=== PATIENT | male | born 1965 | race Caucasian/White ===

== ENCOUNTER 2023-01-13 09:06 | Outpatient (OUT) | payer BC, SELFPAY ==
--- NOTE | 2023-01-13 09:09 | CT_ITS ---
[address] [address] Patient Name: RASHAWN BALTAZAR MRN: [id number] date: 1965 Sex: M Assigned Patient Location: CT Current Patient Location: CT Accession/Order Number: [id number] Exam Date: 01/13/2023 09:12 Report Date: 01/13/2023 09:58 At the request of: FABIO MONTEMAYOR Procedure: CT chest wo con EXAMINATION: CT chest wo con HISTORY: Pulmonary Nodule ; right side chest pain for 3 weeks COMPARISON: CT lung cancer screening 05/06/2022 TECHNIQUE: Multi-planar CT images were obtained without and/or with IV contrast as indicated by examination type. Axial, Coronal, and Sagittal images. Dose reduction techniques were achieved by using automated exposure control and/or adjustment of mA and/or kV according to patient size and/or use of iterative reconstruction technique. FINDINGS: LUNGS: Stable 4.5 cm nodule within right lower lobe superior segment. No additional nodules, infiltrates, or significant emphysematous changes. PLEURA: No mass, effusion, or pneumothorax. VASCULATURE: No abnormality. JORDEN: No mass or adenopathy. MEDIASTINUM: No mass or adenopathy. CARDIAC: No enlargement, pericardial thickening, or significant calcification. AORTA: No aneurysm or dissection. CHEST WALL: No mass or axillary adenopathy. BONES: No bone lesion or fracture. LIMITED ABDOMEN: No suspicious findings Limited images of the upper abdomen. OTHER: Negative. CT/CT chest wo con IMPRESSION: 1. Stable appearance of the 4.5 mm nodule within the right lower lobe superior segment. No change or new findings within the lungs. Annual CT lung cancer screening should be considered. Electronically authenticated by: BASSEM VELÁSQUEZ Date: 01/13/2023 09:58
== END 2023-01-13 09:07 | disposition home or self-care (01) ==
LOC: CT 09:06
PROVIDERS: PCP Internal Medicine; Visit Provider Internal Medicine
DX: R91.1 Solitary pulmonary nodule (principal); R07.2 Precordial pain
CPT/HCPCS: 71250

== ENCOUNTER 2024-01-25 07:42 | Outpatient (OUT) | payer BC, SELFPAY ==
--- NOTE | 2024-01-25 07:55 | CT_ITS ---
The [address] [address] Patient Name: RASHAWN BALTAZAR MRN: [id number] date: 1965 Sex: M Assigned Patient Location: CT Current Patient Location: Accession/Order Number: [id number] Exam Date: 01/25/2024 07:58 Report Date: 01/26/2024 09:36 At the request of: FABIO MONTEMAYOR Procedure: CT lung screening low-dose EXAMINATION: CT lung screening low-dose HISTORY: Nicotine Dependence F17.211 COMPARISON: CT chest 01/13/2023, 05/06/2022 TECHNIQUE: Axial, Coronal, and Sagittal images were created without the administration of IV contrast material. Dose reduction techniques were achieved by using automated exposure control and/or adjustment of mA and/or kV according to patient size and/or use of iterative reconstruction technique. FINDINGS: LUNGS: Stable 4.5 mm nodule within superior segment of right lower lobe. No additional nodules or acute infiltrates. PLEURA: No mass, effusion, or pneumothorax. VASCULATURE: No abnormality. JORDEN: No mass or pathologic adenopathy. MEDIASTINUM: No mass or pathologic adenopathy. CARDIAC: No enlargement, pericardial thickening, or pericardial effusion. Coronary Artery calcifications: AORTA: No aneurysm or dissection. CHEST WALL: No mass or axillary adenopathy BONES: No bone lesion or fracture. LIMITED ABDOMEN: No suspicious findings. Limited images of the upper abdomen. OTHER: Negative. CT/CT lung screening low-dose IMPRESSION: 1. Lung-RADS 2- Benign Appearance or Behavior. Nodules with a very low likelihood of becoming a clinically active cancer due to size or lack of growth. Follow-up CT Chest in 1 year. Electronically authenticated by: BASSEM VELÁSQUEZ Date: 01/26/2024 09:36
[2024-01-25 07:59] LABS: Basophils Absolute Auto 0.1 10^3/uL (0.0-0.1); Basophils Percent Auto 0.6 % (0.2-2.0); Eosinophils Absolute Auto 0.1 10^3/uL (0.0-0.7); Eosinophils Percent Auto 0.7 % (0.9-7.0); Hematocrit 41.1 % (42.0-54.0); Hemoglobin 13.9 g/dL (14.0-18.0); Immature Granulocytes Abs Auto 0.05 10^3/uL (0.00-0.03); Immature Granulocytes Pct Auto 0.5 % (0.0-0.5); Lymphocytes Absolute Auto 4.3 10^3/uL (1.2-3.8); Lymphocytes Percent Auto 40.9 % (20.5-60.0); Mean Corpuscular HGB Conc 33.8 g/dL (29.9-35.2); Mean Corpuscular Volume 91.7 fL (80.0-94.0); Mean Platelet Volume 9.7 fL (9.5-13.5); Monocytes Absolute Auto 0.7 10^3/uL (0.3-0.8); Monocytes Percent Auto 6.1 % (1.7-12.0); Neutrophils Absolute Auto 5.4 10^3/uL (1.4-6.5); Neutrophils Percent Auto 51.2 % (43.0-75.0); Platelet Count 251 10^3/uL (150-450); Red Blood Count 4.48 10^6/uL (4.70-6.10); Red Cell Distribution Width 12.1 % (11.0-15.0); White Blood Count 10.6 10^3/uL (4.0-11.0)
[2024-01-25 09:06] LABS: Estimated Average Glucose 117 mg/dL; Glycohemoglobin A1C 5.7 % (4.5-6.2)
[2024-01-25 09:28] LABS: Alanine Aminotransferase 43 U/L (16-63); Albumin Globulin Ratio 1.2; Alkaline Phosphatase 86 U/L (46-116); Anion Gap 12.8; Aspartate Amino Transferase 28 U/L (15-37); BUN Creatinine Ratio 19.4; Bilirubin Total 0.5 mg/dL (0.2-1.0); Calcium 9.5 mg/dL (8.5-10.1); Carbon Dioxide 24.3 mmol/L (21.0-32.0); Chloride 101 mmol/L (98-107); Chol HDL Ratio 5.2; Cholesterol 192 mg/dL (<=200); Estimated GFR (African America >60 (>=60); Estimated GFR (Non-African Ame >60 (>=60); Globulin 3.3 g/dL; Glucose 109 mg/dL (74-106); HDL Cholesterol 37 mg/dL (40-60); Potassium 4.1 mmol/L (3.5-5.1); Sodium 134 mmol/L (136-145); Total Protein 7.3 g/dL (6.4-8.2); Triglycerides 547 mg/dL (<=150); VLDL CHOLESTEROL 109.4 mg/dL
[2024-01-25 09:40] LABS: Prostate Specific Antigen Scrn 0.44 ng/mL (<=4.00)
[2024-01-25 11:26] LABS: LDL Cholesterol Direct 84 mg/dL
== END 2024-01-25 07:43 | disposition home or self-care (01) ==
LOC: CT 07:42
PROVIDERS: PCP Internal Medicine; Visit Provider Internal Medicine
DX: Z00.00 Encounter for general adult medical examination without abnormal findings (principal); F17.211 Nicotine dependence, cigarettes, in remission; R91.1 Solitary pulmonary nodule
CPT/HCPCS: 36415; 71271; 80053; 80061; 83036; 83721; 84443; 85025; G0103

== ENCOUNTER 2025-02-06 07:31 | Outpatient (OUT) | payer BC, SELFPAY ==
--- OUTSIDE RECORDS SUMMARY | 2025-02-06 07:37 | XMS_ITS | CCD ---
Author Organization [facility] Care Team Providers Care Associate Professor Of Management Name Role Phone STEPHON, DR MTZ Consulting Unavailable BALL, DR MCCARTHY Primary Care Unavailable NILL, DR MTZ Admitting Unavailable NILL, DR MTZ Attending Unavailable BALL, DR MCCARTHY Primary Care Unavailable BALL, DR MCCARTHY Admitting Unavailable BALL, DR MCCARTHY Attending Unavailable HOY, DR MENDIETA Admitting Unavailable HOY, DR MENDIETA Attending Unavailable BALL, DR MCCARTHY Primary Care Unavailable HOY, DR MENDIETA Consulting Unavailable NILL, DR MTZ Admitting Unavailable BALL, DR MCCARTHY Primary Care Unavailable NILL, DR MTZ Attending Unavailable NILL, DR MTZ Consulting Unavailable DORKOPHIL, ELIZABETH Consulting Unavailable David Montemayor Unavailable David Montemayor DO Primary Care Provider David Montemayor DO Attending Provider [phone] Medications Current Medications Medication Drug Class(es) Dates Sig (Normalized) Sig (Original) amLODIPine 10 mg oral tablet (8 sources) Dihydropyridine Calcium Channel Denisse Start: 02-26-2024 take 1 tablet by mouth once daily Amlodipine 10 mg tablet Active 0 .ROUTE .COMPLEX February 26, 2024 7:29pm TAKE 1 TABLET BY MOUTH DAILY Complies with drug therapy Start: 08-25-2023 End: 02-26-2024 take 1 tablet by mouth once daily Amlodipine 10 mg tablet Discontinued 10 MG PO Daily August 25, 2023 12:00am February 26, 2024 7:29pm take 1 tablet by karley th every twenty-four hours amLODIPine Besylate 10 MG 1 tablet Orally Once a day for 90 days Active 24 hr metoprolol succinate 50 mg extended release oral tablet (10 sources) beta-Adrenergic Denisse Start: 01-26-2025 take 1 tablet by mouth once daily Metoprolol Succinate 50 mg tablet extended release 24 hr Active 0 .ROUTE .COMPLEX January 26, 2025 8:37am TAKE 1 TABLET BY MOUTH DAILY Complies with drug therapy Start: 01-18-2024 End: 01-26-2025 take 1 tablet by mouth once daily Metoprolol Succinate 50 mg tablet extended release 24 hr Discontinued 50 MG PO Daily January 18, 2024 2:34pm January 26, 2025 8:37am Start: 08-25-2023 End: 01-18-2024 take 1 tablet by mouth once daily Metoprolol Succinate 25 mg tablet extended release 24 hr Discontinued 25 MG PO Daily August 25, 2023 12:00am January 18, 2024 2:35pm Start: 10-20-2022 take 1 tablet by karley th every twenty-four hours Metoprolol Succinate ER 25 MG 1 tablet Orally Once a day for 90 days Sep, Active omeprazole 20 mg delayed release oral capsule (13 sources) Proton Pump Inhibitor Start: 02-27-2024 End: 08-24-2024 take 1 capsule by mouth once daily Omeprazole 20 mg capsule,delayed release(DR/EC) Active 20 MG PO Daily August 24, 2024 6:49am Complies with drug therapy Start: 08-25-2023 End: 02-27-2024 Omeprazole 20 mg capsule,del ayed release(DR/EC) Discontinued 0 .ROUTE .COMPLEX November 28, 2023 10:00am February 27, 2024 11:04am TAKE 1 CAPSULE BY MOUTH 30 MINUTES BEFORE MORNING MEAL Start: 08-25-2023 End: 11-28-2023 Omeprazole Active 0 .ROUTE . COMPLEX November 28, 2023 10:00am TAKE 1 CAPSULE BY MOUTH 30 MINUTES BEFORE MORNING MEAL Start: 08-25-2023 End: 08-25-2023 take 1 capsule by mouth once daily Omeprazole 20 mg capsule,delayed release(DR/EC) Discontinued 20 MG PO Daily August 25, 2023 12:00am August 25, 2023 4:04pm Start: 11-05-2022 take 1 capsule by mo [facility] once daily Omeprazole 20 MG 1 capsule 30 minutes before morning meal Orally Once a day Oct, Active rosuvastatin calcium 10 mg oral tablet (8 sources) HMG-CoA Reductase Inhibitor Start: 08-25-2023 End: 02-27-2024 take 1 tablet by mouth once daily Rosuvastatin 10 mg tablet Active 10 MG PO Daily 90 February 27, 2024 11:03am Complies with drug therapy take 1 tablet by karley th every twenty-four hours Rosuvastatin Calcium 10 MG 1 tablet Oral ly Once a day for 90 days Active Problems Active Problems Problem Classification Problem Date Documented Date Episodic/Chronic Anxiety disorders (14 sources) Generalized anxiety disorder; Translations: [Generalized anxiety disorder] 01-01-2024 Chronic Disorders of lipid metabolism (15 sources) Hyperlipidemia, unspecified; Translations: [Mixed hyperlipidemia] Onset: 05-11-2021 01-01-2024 Chronic Esophageal disorders (20 sources) Guillen's esophagus without dysplasia; Translations: [Guillen's esophagus] Onset: 05-06-2021 Chronic Comment on above: EGD: 2018 Esophageal disorders (7 sources) Esophageal disorders; Translations: [Gastro-esophageal reflux disease with esophagitis, without bleeding] Essential hypertension (11 sources) Essential (primary) hypertension; Translations: [Essential hypertension] Onset: 05-11-2021 Chronic Nonspecific chest pain (1 source) Precordial pain Episodic Other lower respiratory disease (8 sources) Nodule of lung; Translations: [Solitary pulmonary nodule] 01-01-2024 Episodic Comment on above: CT: 4.5mm RLL - 01/19 24, Other lower respiratory disease (3 sources) Solitary pulmonary nodule; Translations: [Solitary pulmonary nodule] Episodic Other screening for suspected conditions (not mental disorders or infectious disease) (4 sources) Patient encounter status; Translations: [Encounter for screening for malignant neoplasm of prostate] 01-01-2024 Episodic Residual codes; unclassified (13 sources) Obstructive sleep apnea syndrome; Translations: [Obstructive sleep apnea (adult) (pediatric)] Onset: 04-09-2021 01-01-2024 Chronic Residual codes; unclassified (1 source) Obstructive sleep apnea (adult) (pediatric); Translations: [Obstructive sleep apnea (adult)(pediatric)] 01-18-2024 Chronic Residual codes; unclassified (2 sources) History of colonoscopy; Translations: [Other specified postprocedural states] 01-01-2024 Episodic Substance-related disorders (17 sources) Nicotine dependence, cigarettes, uncomplicated; Translations: [Tobacco user] Onset: 05-11-2021 Chronic Comment on above: LDCT: 4.5mm RLL nodu le, no suspicious nodules - 12/2022, 01/2024 Unclassified (1 source) GASTR-ESOPH RFLX DS ESPHGTS W/O BLD; Translations: [GASTR-ESOPH RFLX DS ESPHGTS W/O BLD] Onset: 05-11-2021 Unclassified (1 source) CONTACT W/AND (SUSP) EXPOS COVID-19; Translations: [CONTACT W/AND (SUSP) EXPOS COVID-19] Onset: 05-07-2021 Past or Other Problems Problem Classification Problem Date Documented Date Episodic/Chronic Abdominal hernia (1 source) Diaphragmatic hernia without obstruction or gangrene; Translations: [DIAPH HERNIA W/O OBST/GANGRENE] Onset: 05-11-2021 Episodic Results Test Name Value Interpretation Reference Range Facil ity Reminderson 05-22-2021 Reminders - From: Heather Elder LPN To: N - Clinical; Sent: 05/22/2021 11:36:01 EST Show up: 04/05/2026 08:00:00 EST Subject: EGD recall Due Date/Time: 05/06/2026 08:00:00 EST Reminder/Recall Patient is due for EGD 05/06/2026 due to history of Guillen's esophagus. Normal [facility] Pathology Noteon 05-08-2021 Pathology Note [id number]#1.00CD:[address] [facility] Operative Reporton Operative Report [id number] #1.00CD:[address] [facility] Lab Reportson 05-04-2021 Lab Reports [id number] #1.00CD:[address] [facility] 04-03 SARS-CoV-2 (COVID-19) RNA COLLETTE+probe Ql (Unsp spec) Not detected Normal NOT DETECTED [facility] Comment on above: Result Comment: This test is not yet approved or cleared by the [place] FDA. When there are no FDA-approved or cleared tests available, and other criteria are met, FDA can make tests available under an emergency access mechanism called an Emergency Use Authorization (EUA). The EUA for this test is supported by the [place] of Health and Human Service's (HHS's) declaration that circumstances exist to justify the emergency use of in vitro diagnostics for the detection and/or diagnosis of the virus that causes COVID-19. This EUA will remain in effect (meaning this test can be used) for the duration of the COVID-19 declaration justifying emergency of IVDs, unless it is terminated or revoked by FDA (after which the test may no longer be used). When diagnostic testing is negative, the possibility of a false negative should be considered in the context of a patient's recent exposures and the presence of clinical signs and symptoms consistent with SARS-CoV-2. Performed By: #### [facility] #### [facility] Laboratory [address] [place] [address] Dr. Aria Mcdonald Consent for Procedure/Surger yo 04-16-2021 Consent for Procedure/Surgery [id number] #1.00CD:[address] [facility] Patient Educationon 04-15-20 Patient Education Normal [facility] Provider Letter FTon 04-15 Provider [place] [facility] [place] DAVID MONTEMAYOR, [facility] [place] [address] Re: HARIS RUIZ Date of : 1965 Thank you for your referral of Haris Ruiz who was seen on consultation on 04/14/2021 for EGD due to history Guillen's esophagus. I have enclosed my consultation note for your review. I will be happy to follow Haris. Sincerely, Bibi Love MD General Surgery Normal [facility] Ambulatory Clinical Summaryo n 04-14-2021 Ambulatory Clinical Summary {[id number]}CD:[id number] Normal [facility] Physician Referralon 021 Physician Referral [id number] #1.00CD:[address] [facility] Vital Signs Date Time Vital Sign Value Performing Clinician Facility 01-30-2025 15:03-0400 Body height 181.61 cm David Ball DO Work Phone: [facility] 01-30-2025 15:03-0400 Body mass index (BMI) [Ratio] 27.1 kg/m2 David Ball DO Work Phone: [facility] 01-30-2025 15:03-0400 Body weight 89.35 kg David Ball DO Work Phone: [facility] 01-30-2025 15:03-0400 Diastolic blood pressure 80 mm[Hg] David Ball DO Work Phone: [facility] 01-30-2025 15:03-0400 Heart rate 87 /min David Ball DO Work Phone: [facility] 01-30-2025 15:03-0400 Respiratory rate 12 /min David Ball DO Work Phone: [facility] 01-30-2025 15:03-0400 Systolic blood pressure 120 mm[Hg] David Ball DO Work Phone: [facility] 01-18-2024 14:25-0400 Body height 180.34 cm [facility] 01-18-2024 14:25-0400 Body mass index (BMI) [Ratio] 26.9 kg/m2 [facility] 01-18-2024 14:25-0400 Body weight 87.71 kg [facility] 01-18-2024 14:25-0400 Diastolic blood pressure 87 mm[Hg] [facility] 01-18-2024 14:25-0400 Heart rate 102 /min [facility] 01-18-2024 14:25-0400 Respiratory rate 12 /min [facility] 01-18-2024 14:25-0400 Systolic blood pressure 145 mm[Hg] [facility] 12-31-2022 14:00-0400 Body height 175.26 cm David Ball Other [email or web address] Other 12-31-2022 14:00-0400 Body mass index (BMI) [Ratio] 26.81 kg/m2 David Montemayor Other [email or web address] Other 12-31-2022 14:00-0400 Body weight 82.37 kg David Montemayor Other [email or web address] Other 12-31-2022 14:00-0400 Diastolic blood pressure 88 mm[Hg] David Montemayor Other [email or web address] Other 12-31-2022 14:00-0400 Respiratory rate 12 /min David Montemayor Other [email or web address] Other 12-31-2022 14:00-0400 Systolic blood pressure 153 mm[Hg] David Montemayor Other [email or web address] Other Encounters Encounter Date Encounter Type Care Provider Facility Start: 01-30-2025 End: 01-30-2025 ambulatory David Montemayor DO Work Phone: [facility] Work Phone: Start: 01-30-2025 End: 01-30-2025 Patient encounter procedure David Montemayor -[facility] Work Phone: Start: 01-30-2025 End: 01-30-2025 Patient encounter status David Montemayor [facility] Start: 01-18-2024 End: 01-18-2024 ambulatory [facility] Work Phone: Start: 01-18-2024 End: 01-18-2024 Encounter for general adult medical examination without abnormal findings [facility] Start: 01-18-2024 End: 01-18-2024 Patient encounter procedure [facility] Work Phone: Start: 01-01-2024 Patient encounter status [facility] Start: 06-08-2023 End: 06-08-2023 ambulatory David Montemayor Other [email or web address] Other Start: 06-08-2023 Telephone encounter David Jose Elias [facility] Start: 02-11-2023 End: 02-11-2023 ambulatory David Montemayor Other [email or web address] Other Start: 02-11-2023 Telephone encounter David Montemayor [facility] Start: 01-14-2023 End: 01-14-2023 ambulatory David Montemayor Other [email or web address] Other Start: 01-14-2023 Telephone encounter David Montemayor [facility] Start: 01-13-2023 End: 01-13-2023 ambulatory David Montemayor Other [email or web address] Other Start: 01-13-2023 Telephone encounter David Montemayor [facility] Start: 12-31-2022 End: 12-31-2022 ambulatory David Montemayor Other [email or web address] Other Start: 12-31-2022 Office outpatient vi sit 15 minutes David Montemayor [facility] Start: 04-28-[address] DAVID MONTEMAYOR Facili ty:[facility] Start: 03-03-2022 End: 03-04-[address] ANAM CONNOR Facility:[facility] Start: 05-07-2021 Encounter for preprocedural laboratory examination DR BIBI LOVE [facility] Start: 05-06-2021 End: 05-06-[address] BIBI LOVE Facility:[facility] Start: 04-30-2021 End: 05-01-[address] BIBI LOVE Facility:[facility] Start: 04-30-2021 End: 05-01-2021 Encounter for preprocedural laboratory examination DR BIBI LOVE Facility:[facility] Plan of Treatment Date Care Activity Detail Author Comprehensive metabo lic 1999 panel - Serum or Plasma [facility] enter Comprehensive metabo lic 1999 panel - Serum or Plasma [facility] enter CT Chest WO contrast [facility] Payers Date Payer Category Payer Unknown [id number] 1965 Unknown [id number] [id number] [id number] 1965 Unknown [id number] [id number] [id number] 1965 Unknown [id number] [id number] [id number] 1961 [facility] [id number] [id number] Unknown [id number] [id number] [id number] Social History Date Type Detail Facility Sex Assigned At [facility] [employer] Other Start: 1965 Sex Assigned At Male F [facility] Tobacco smoking stat [facility] Unknown if ever smoked [facility] Work Phone: Sex Male (finding) [facility] Clinical Notes 04-15-2021 to 06-08-2023 Note Date & Type Note Facility 06-08-2023 Evaluation note Encounter Date Diagnosis Assessment Notes Jun, Primary hypertension (ICD-10 - I10) [employer] [place] [facility] [employer] Other 10-13-2023 Evaluation note* Encounter Date Diagnosis Assessment Notes Treatment Notes Treatment Clinical Notes Jan, Primary hypertension (ICD-10 - I10) [email or web address] Other 09-14-2023 Evaluation note* Encounter Date Diagnosis Assessment Notes Treatment Notes Treatment Clinical Notes Dec, Nicotine dependence, cigarettes, uncomplicated (ICD-10 - F17.210) Dec, Pulmonary nodule (ICD-10 - R91.1) CT: stable 4.5mm nodule - 12/2022 [email or web address] Other 09-01-2023 Evaluation note* Encounter Date Diagnosis Assessment Notes Treatment Notes Treatment Clinical Notes Dec, Pulmonary nodule (ICD-10 - R91.1) Dec, Precordial pain (ICD-10 - R07.2) Dec, Gastro-esophageal reflux disease with esophagitis, without bleeding (ICD-10 - K21.00) Dec, Primary hypertension (ICD-10 - I10) Dec, Nicotine dependence, cigarettes, uncomplicated (ICD-10 - F17.210) [email or web address] Other 01-05-2022 NoteOPERATIVE NOTE OPERATION DATE: 05-06-21 ANESTHETIC:Monitored anesthesia care. PREOPERATIVE DIAGNOSIS:History of Guillen's esophagus. POSTOPERATIVE DIAGNOSIS:Mild distal esophagitis, small sliding type hiatal hernia. PROCEDURE NAME:EGD with biopsy of the distal esophagus. ESTIMATED BLOOD LOSS: Less than 1 mL. INDICATIONS AND CONSENT: The patient is a 56 year-old male with history of Guillen's esophagus. Indications, risks, benefits, and alternatives of proceeding surveillance EGD were explained extensively to the patient including the risk of bleeding, aspiration, esophageal, gastric or duodenal perforation or anesthetic complications. All of his questions were answered and informed consent was obtained. PROCEDURE: The patient was brought to the OR and placed in the left lateral decubitus position. Monitored anesthesia care was provided. A bite block was placed in the patient's mouth, the scope was inserted into the oropharynx, under direct visualization it was advanced into the esophagus, passed the cricopharyngeus, down into the stomach. The stomach was insufflated with air, the pylorus was traversed down to the descending portion of the duodenum. There was no evidence of duodenitis or ulceration. There was no scarring range of motion the pyloric channel. The scope was pulled back into the stomach and retroflexed. There was noted to be a small sliding type hiatal hernia. No other gastric mucosal abnormalities. The GE junction was noted at approximately 40 cm. There was very mild distal esophagitis, no evidence of Guillen's changes. Biopsy was obtained with pediatric biopsy forceps with good hemostasis. The remainder of the esophagus was unremarkable. The scope was then withdrawn, the patient tolerated the procedure well and was sent to the Recovery Room in good condition. cc:Dr. Montemayor. [facility] Signed and Approved by: DR BIBI LOVE . 05/06/2021 10:37:00[facility]12-15-2021 NoteChief Complaint consultation for heartburn HPI Staff 56 year old male presents on consultation from Dr. Montemayor for EGD due to history of Guillen's esophagus, diagnosed 2018. Denies nausea, vomiting, abdominal pain or food intolerance. History of Present Illness 56 yo female with h/o htn, referred for surveillance EGD due to h/o Guillen's esophagus; dx on EGD in 2018, no dysplasia; had normal colonoscopy at that time; denies GERD symptoms, on Omeprazole, 20 mg daily; no dysphagia or odynophagia; no early satiety or wt loss; denies as or NSAID use. fmhx of esophageal cancer in patient's brother. Review of Systems PHQ Score Initial Depression Screen Score: 0 ROS - Provider Constitutional: no fever, no sweats, no weight loss. Eyes: no glasses, no blurred vision, no visual loss. ENMT: no dentures, no hoarseness, no swallowing difficulties, no hearing loss, no ear infection(s),no nose bleeds. Cardiovascular: high blood pressure, no chest pain, regular heartbeat, no heart murmur. Respiratory: no shortness of breath, no cough, no asthma, no wheezing. Gastrointestinal: no nausea, no vomiting, no diarrhea, no constipation, no blood in stool, no change in bowel habits, no abdominal pain, no hepatitis. Genitourinary: no kidney stones, no urine infection, no dysuria. Musculoskeletal: no pain, no weakness. Skin: no changing moles, no rash, no skin lumps. Neurologic: no seizures, no epilepsy, no headache. Psychiatric: no emotional or psychiatric problem. Heme/Lymph: no bleeding problems, no anemia, no blood clots, no transfusions. Allergy/Immunologic: no swollen lymph nodes/glands, no IV drug abuse. Other: Additional ROS info: Except as noted in the above Review of Systems and in the History of Present Illness, all other systems have been reviewed and are negative or noncontributory. Physical Exam Vitals & Measurements T: 36.2 ?C(Temporal Artery) HR: 72(Peripheral) RR: 16 BP: 138/86 HT: 175.26 cm HT: 175.3 cm WT: 81.3 kg WT: 81.3 kg BMI: 26.47 HEENT: normal conjunctiva, sclera clear, no scleral icterus, EOM intact, PERRLA, oral mucosa moist without lesions. Neck: trachea midline, no mass, symmetric, no thyromegaly or nodules, no adenopathy Respiratory: lungs CTA, respirations non labored. Cardiovascular: regular rate and rhythm, no murmur, no pedal edema or varicosities. Gastrointestinal: soft, non distended, no tenderness, no masses, no palpable hernias, diastasis recti no, no hepatosplenomegaly; normal bs Lymphatic: no cervical adenopathy, Musculoskeletal: normal gait, digits and nails without infection, nodes, cyanosis, clubbing. Skin: no rashes, no lesions, no ulcers, no subcutaneous nodules, induration. Psychiatric/Neuro: oriented to time, place, person, judgement normal, affect appropriate for age, insight intact, no focal deficits. Tests: review of old records completed, Discussed surgical options, risks, and possible complications with patient. Assessment/Plan 1. Guillen's esophagus (K22.70: Guillen's esophagus without dysplasia) plan EGD under anesthesia with biopsies; informed consent obtained. 2. GERD (gastroesophageal reflux disease) (K21.9: Gastro-esophageal reflux disease without esophagitis) controlled with PPI Follow-up No qualifying data available Problem List/Past Medical History Ongoing Guillen's esophagus BMI 26.0-26.9,adult Depression, major, recurrent, mild ALLY (generalized anxiety disorder) GERD (gastroesophageal reflux disease) HTN (hypertension) Hyperlipidemia Smoker Historical No qualifying data Procedure/Surgical History Colonoscopy (04/01/2018), EGD - Esophagogastroduodenoscopy (04/01/2018), Repair of right inguinal hernia (05/02/2011), Biopsy of lymph node. Medications amLODIPine 5 mg Tab, 5 mg= 1 tab(s), Oral, Daily Lexapro 10 mg Tab, 10 mg= 1 tab(s), Oral, Daily metoprolol 25 mg ER Tab, 25 mg= 1 tab(s), Oral, Daily omeprazole 20 mg Cap-DR, 20 mg= 1 cap(s), Oral, Daily rosuvastatin 10 mg Tab, 10 mg= 1 tab(s), Oral, Daily Allergies No Known Allergies No Known Medication Allergies Social History Alcohol - Denies Alcohol Use, 04/14/2021 Substance Abuse - Denies Substance Abuse, 04/14/2021 Tobacco 10 or more cigarettes (1/2 pack or more)/day in last 30 days Tobacco Use:. Never Smokeless Tobacco Use:. Cigarettes, 1 per day. Started age 15.0 Years., 04/14/2021 Family History Diabetes mellitus type 2: Mother, Sister and Brother. Esophageal cancer: Brother. Heart disease: Mother. Hypertension: Father, Sister and Brother. Primary malignant neoplasm of lung: Father.[facility]Result Comment: Electronically Signed By: STEPHON ANDRADE, Bibi Flores\Date and Time Signed: 04/15/21 11:44 ESTEvaluation noteNo InformationNortEncompass Health [employer] Other Evaluation note* Diagnosis Onset Date Resolution Status Guillen's esophagus acute ALLY (generalized anxiety disorder) acute GERD (gastroesophageal reflux disease) acute Hypercholesterolemia acute Nicotine addiction acute GIULIA (obstructive sleep apnea) acute Pulmonary nodule acute Screening PSA (prostate specific antigen) acute Wellness examination acute [facility] Work Phone: Evaluation note* Diagnosis Onset Date Resolution Status Admit Date ALLY (generalized anxiety disorder) a cute January 30, 2025 2:52pm GERD (gastroesophageal reflu x disease) acute January 30 2:52pm Hypercholesterolemia acute Octo 2024 2:52pm Hypertension acute January 30, 2025 2:52pm Nicotine addiction acute r 2024 2:52pm GIULIA (obstructive sleep apnea) acute January 30, 2025 2:52pm Pulmonary nodule acute January 30, 2025 2:52pm Screening PSA (prostate spec ific antigen) acute January 30 2:52pm Wellness examination acute 2024 2:52pm [facility] Work Phone: History general Narrative - Reported* Type Description Date Medical History Hyperlipidemia, mixed Medical History ALLY (generalized anxiety disorde r) Medical History Cigarette nicotine dependence wi thout complication Medical History Obstructive sleep apnea Medical History Guillen's esophagus without dysp lasia Medical History Gastroesophageal ref lux disease with esophagitis without hemorrhage Surgical History COLONOSCOPY 04/2018 Surgical History EGD 04/2018 Hospitalization History see surgical history [facility] [employer] Other Reason for referral (narrative)No reason for referral information availableSelect [facility] [place] Work Phone: Summary Purpose Family History Relationship Condition Age at Onset Recorded Date/T ramon mother Diabetes mellitus Unknown Heart disease Unknown Advance Directives Advance Directive Response Recorded Date/ Time Advance Directives No December 2:18pm Chief Complaint and Reason for Visit Chief Complaint wellness Reason for Visit Guillen's esophagus ALLY (generalized anxiety disorder) GERD (gastroesophageal reflux disease) Hypercholesterolemia Nicotine addiction GIULIA (obstructive sleep apnea) Pulmonary nodule Screening PSA (prostate specific antigen) Wellness examination Chief Complaint Admit Date Wellness January 30, 2025 2: 52pm Reason for Visit Admit Date ALLY (generalized anxiety disorder) Octob er 2024 2:52pm GERD (gastroesophageal reflux disease) O ctober 2024 2:52pm Hypercholesterolemia January 30, 2025 2 :52pm Hypertension January 30, 2025 2: 52pm Nicotine addiction January 30, 2025 2: 52pm GIULIA (obstructive sleep apnea) January 2:52pm Pulmonary nodule January 30, 2025 2: 52pm Screening PSA (prostate specific antigen ) January 30, 2025 2:52pm Wellness examination January 30, 2025 2 :52pm Additional Source Comments (unrecognized sect ion and content) No Status Records FoundNo Status Records Found INFORMATION SOURCE (unrecogn ized section and content) DATE CREATED AUTHOR 05/23/2021 [facility] DATE CREATED AUTHOR AUTHOR'S ORGANIZ ATION 04/24/2022 [facility] REASON FOR VISIT (unrecogniz ed section and content) chest pain, not cardiac rela tedNo InformationCT resultsRefillRefills Care Teams (unrecognized sec tion and content) Team Status: Active Member Role Status Dates David Mnotemayor DO Primary Care Provider Active Team Status: Inactive Member Role Status Dates David Montemayor DO Primary Care Provide r, Attending Provider Active Start: January 18, 2024 End: January 18, 2024 Team Status: Inactive Member Role Status Dates David Montemayor DO Primary Care Provider Active Start: January 30, 2025 End: January 30, 2025 David Montemayro DO Attending Provider Active Sta rt: January 30, 2025 End: January 30, 2025 Goals (unrecognized section and content) Goals may be documented in a n alternate section FOR RECORDS PERTAINING TO PATIENTS WHO ARE OR HAVE BEEN ENROLLED IN A CHEMICAL DEPENDENCY/SUBSTANCEABUSE PROGRAM, SOME INFORMATION MAY BE OMITTED. This clinical summary was aggregated from multiple sources. Caution should be exercised in using it in the provision of clinical care. This summary normalizes information from multiple sources, and as a consequence, information in this document may materially change the coding, format and clinical context of patient data. In addition, data may be omitted in some cases. CLINICAL DECISIONS SHOULD BE BASED ON THE PRIMARY CLINICAL RECORDS. [facility] [employer] [facility]. provides no warranty or guarantee of the accuracy or completeness of information in this document.
[2025-02-06 08:14] LABS: Hematocrit 41.7 % (42.0-54.0); Hemoglobin 14.2 g/dL (14.0-18.0); Mean Corpuscular HGB Conc 34.1 g/dL (29.9-35.2); Mean Corpuscular Hemoglobin 30.9 pg (25.9-34.0); Mean Corpuscular Volume 90.7 fL (80.0-94.0); Platelet Count 322 10^3/uL (150-450); Red Blood Count 4.60 10^6/uL (4.70-6.10); White Blood Count 12.6 10^3/uL (4.0-11.0)
[2025-02-06 08:21] LABS: Alanine Aminotransferase 43 U/L (16-63); Albumin Globulin Ratio 1.1; Albumin Level 4.2 g/dL (3.4-5.0); Alkaline Phosphatase 84 U/L (46-116); Anion Gap 13.9; Aspartate Amino Transferase 23 U/L (15-37); Blood Urea Nitrogen 22.0 mg/dL (7.0-18.0); Calcium 9.3 mg/dL (8.5-10.1); Carbon Dioxide 27.2 mmol/L (21.0-32.0); Chloride 104 mmol/L (98-107); Cholesterol 167 mg/dL (<=200); Estimated GFR (African America >60 (>=60 mL/min/1.73m^2); Estimated GFR (Non-African Ame >60 (>=60 mL/min/1.73m^2); Globulin 3.8 g/dL; Glucose 121 mg/dL (74-106); HDL Cholesterol 34 mg/dL (40-60); Potassium 4.1 mmol/L (3.5-5.1); Sodium 141 mmol/L (136-145); Total Protein 8.0 g/dL (6.4-8.2); Triglycerides 299 mg/dL (<=150); VLDL CHOLESTEROL 59.8 mg/dL
[2025-02-06 10:08] LABS: Basophils Abs Manual 0.00 10^3/uL (0.00-0.10); Basophils Percent Manual 0.0 % (0.2-2.0); Eosinophils Absolute Manual 0.00 10^3/uL (0.00-0.70); Eosinophils Percent Manual 0.0 % (0.9-7.0); Lymphocytes Absolute Manual 6.55 10^3/uL (1.20-3.80); Lymphocytes Percent Manual 52.0 % (20.5-60.0); Monocytes Absolute Manual 1.13 10^3/uL (0.30-0.80); Monocytes Percent Manual 9.0 % (1.7-12.0); Segmented Neut Absolute Manual 4.91 10^3/uL (1.4-6.5); Segmented Neutrophils % Manual 39.0 (43.0-75.0)
== END 2025-02-06 07:32 | disposition home or self-care (01) ==
LOC: LAB 07:33
PROVIDERS: PCP Internal Medicine; Visit Provider Internal Medicine
DX: Z00.00 Encounter for general adult medical examination without abnormal findings (principal); Z12.5 Encounter for screening for malignant neoplasm of prostate
CPT/HCPCS: 36415; 80053; 80061; 83036; 85007; 85027; G0103

== ENCOUNTER 2025-02-28 14:23 | Outpatient (OUT) | payer BC, SELFPAY ==
--- OUTSIDE RECORDS SUMMARY | 2025-02-28 14:26 | XMS_ITS | Clinical Summary ---
Author Organization [facility] tem Address [id number] [address] [place] [address] Care Team Providers Care Mineralogy Professor Name Role Phone David Moctezuma Primary Care Provider [phone] Allergies No known active allergies Medications MedicationSigDispense QuantityRefillsLast FilledStart DateEnd DateStatus metoprolol succinate XL (TOPROL-XL) 25 mg 24 hr tablet Take 25 mg by mouth daily.Active PRILOSEC OTC 20 mg EC tablet Take 20.6 mg by mouth daily.Active rosuvastatin (CRESTOR) 10 mg tablet Take 10 mg by mouth daily.Active CHANTIX CONTINUING MONTH BOX 1 mg tablet Take 1 mg by mouth See Admin Instructions.Active CHANTIX STARTING MONTH BOX 0.5 mg (11)- 1 mg (42) tablet Take 1 mg by mouth See Admin Instructions.Active Active Problems No known active problems Family History Medical HistoryRelationNameCommentsLung cancerFatherDiabetesMotherRelationName StatusCommentsFatherDeceasedMotherAlive Social History Tobacco UseTypesPacks/DayYears UsedDateSmoking Tobacco: FormerCigarettes1.537 03/17/1981 - 03/17/2018Smokeless Tobacco: NeverAlcohol UseStandard Drinks/Week CommentsYes0 (1 standard drink = 0.6 oz pure alcohol)RareChildcareAnswerDate PuxhvgrqTgxvorixtKfvdjtq47/12/2019EmploymentAnswerDate RecordedEmploymentUnknown 10/11/2018Purpose - LifeAnswerDate RecordedPurpose and direction in lifeUnknown 1Sex and Gender InformationValueDate RecordedSex Assigned at BirthNot on fileLegal JlaQvvb7712/05/2014 11:24 AM EDTGender IdentityNot on fileSexual OrientationNot on file Last Filed Vital Signs Vital SignReadingTime TakenCommentsBlood Vigugjbw337/9004/10/2018 1:18 PM EST Wfzji623004/03/2018 9:44 AM WRMTonwjnvmeyu40.9 ??C (98.5 ??F)04/03/2018 8:04 AM ESTRespiratory Lpjk645606/04/2017 9:44 AM ESTOxygen Wwimnmsazn23%04/03/2018 10:01 AM ESTInhaled Oxygen Concentration--[place]03 kg (172 lb)04/10/2018 1:18 PM EST Hynzke386.3 cm (5' 11 )04/10/2018 1:18 PM ESTBody Mass Index23.9904/10/2018 1:18 PM EST Plan of Treatment Health MaintenanceDue DateLast DoneCommentsDepression Svbqjujas70/09/1975Tobacco Fihxlkfoe51/09/1975Adult BMI Odnqxpojy94/09/1981DTaP,Tdap and Td Vaccines (1 - Tdap)1982Zoster (Shingles) Vaccine (1 of 2)2013Influenza Vaccine Colonoscopy, 04/03/2018 Medical Devices Not on file Procedures Procedure NamePriorityDate/TimeAssociated HxcmcjysoWjpmpswhSUVYHPFYOUZ80/03/2018 9:30 AM EST from Last 3 Months or Most Recently Relevant to Health Maintenance Results * Colonoscopy (04/03/2018 9:30 AM EST)Specimen (Source)Anatomical Location / LateralityCollection Method / VolumeCollection TimeReceived Time04/03/2018 9:30 AM EST Narrative PM CARDIOVASCULAR - 04/03/2018 9:46 AM EST [facility] Patient Name: Haris Ruiz ?? Procedure Date No Time: 04/03/2018 ?? Date of : 1965 Admit Type: Outpatient Age: 53 Room: [place] [address] Gender: Male Note Status: Finalized Attending MD: Isidro Barker DO Procedure: ?Colonoscopy Indications: ?Heme positive stool Providers: ?Isidro Barker DO Referring MD: ? Isidro Barker DO Medicines: ?Propofol per Anesthesia Complications: ?No immediate complications. Procedure: ?After I obtained informed consent, the scope was passed ?under direct vision. Throughout the procedure, the ?patient's blood pressure, pulse, and oxygen saturations ?were monitored continuously. The [employer] CF-[id number] ?#[id number] ADULT COLONOSCOPE was introduced through the ?anus and advanced to the cecum, identified by ?appendiceal orifice and ileocecal valve. The ?colonoscopy was performed without difficulty. The ?patient tolerated the procedure well. The quality of ?the bowel preparation was good. Findings: ? The perianal and digital rectal examinations were normal. ? Multiple small and large-mouthed diverticula were found in the sigmoid ? colon and descending colon. ? An area of mildly congested mucosa was found in the sigmoid colon. ? Biopsies were taken with a cold forceps for histology. ? The exam was otherwise without abnormality on direct and retroflexion ? views. Estimated Blood Loss: Estimated blood loss was minimal. Impression: ? - Diverticulosis in the sigmoid colon and in the ?descending colon. ?- Congested mucosa in the sigmoid colon. Biopsied. ?- The examination was otherwise normal on direct and ?retroflexion views. Recommendation: ? - Discharge patient to home. ?- Repeat colonoscopy in 10 years for screening purposes. ?- Return to my office in 1 week. Procedure Code(s): ?--- Professional --- ?71887, Colonoscopy, flexible; with biopsy, single or ?multiple Diagnosis Code(s): ? --- Professional --- ? K63.89, Other specified diseases of intestine ? R19.5, Other fecal abnormalities ? K57.30, Diverticulosis of large intestine without perforation or abscess ? without bleeding CPT copyright 2017 [employer]. All rights reserved. The codes documented in this report are preliminary and upon machine shop inspector review may be revised to meet current compliance requirements. DO Isidro Swan DO 04/03/2018 9:45:26 AM Number of Addenda: 0 Note Initiated On: 04/03/2018 9:30 AM Procedure Note Isidro Barker DO - 04/03/2018 [facility] Patient Name: Haris Ruiz Procedure Date No Time: 04/03/2018 Date of : 1965 Admit Type: Outpatient Age: 53 Room: [place] [address] Gender: Male Note Status: Finalized Attending MD: Isidro Barker DO Procedure: Colonoscopy Indications: Heme positive stool Providers: Isidro Barker DO Referring MD: Isidro Barker DO Medicines: Propofol per Anesthesia Complications: No immediate complications. Procedure: After I obtained informed consent, the scope waspassed under direct vision. Throughout the procedure, the patient's blood pressure, pulse, and oxygensaturations were monitored continuously. The [employer] CF-[id number] #[id number] ADULT COLONOSCOPE was introduced throughthe anus and advanced to the cecum, identified by appendiceal orifice and ileocecal valve. The colonoscopy was performed without difficulty. The patient tolerated the procedure well. The quality of the bowel preparation was good. Findings: The perianal and digital rectal examinations were normal. Multiple small and large-mouthed diverticula were found in thesigmoid colon and descending colon. An area of mildly congested mucosa was found in the sigmoid colon. Biopsies were taken with a cold forceps for histology. The exam was otherwise without abnormality on direct and retroflexion views. Estimated Blood Loss: Estimated blood loss was minimal. Impression: - Diverticulosis in the sigmoid colon and in the descending colon. - Congested mucosa in the sigmoid colon. Biopsied. - The examination was otherwise normal on direct and retroflexion views. Recommendation: - Discharge patient to home. - Repeat colonoscopy in 10 years for screeningpurposes. - Return to my office in 1 week. Procedure Code(s): --- Professional --- 84809, Colonoscopy, flexible; with biopsy, single or multiple Diagnosis Code(s): --- Professional --- K63.89, Other specified diseases of intestine R19.5, Other fecal abnormalities K57.30, Diverticulosis of large intestine without perforation orabscess without bleeding CPT copyright 2017 [employer]. All rights reserved. The codes documented in this report are preliminary and upon machine shop inspector reviewmay be revised to meet current compliance requirements. DO Isidro Swan DO 04/03/2018 9:45:26 AM Number of Addenda: 0 Note Initiated On: 04/03/2018 9:30 AM Authorizing ProviderResult TypeResult StatusMicjaron INGRAM PROCEDURE ORDERABLESFinal ResultPerforming OrganizationAddressCity/State/ZIP CodePhone Number PM CARDIOVASCULAR from Last 3 Months or Most Recently Relevant to Health Maintenance Insurance Care Teams Team MemberRelationshipSpecialtyStart DateEnd Date David Moctezuma DO [address] [place] [address] PCP - GeneralInternal Jcjyxyev53/8/18
--- OUTSIDE RECORDS SUMMARY | 2025-02-28 14:37 | XMS_ITS | CCD ---
Author Organization [facility] CliniSywi Care Team Providers Care Assistant Professor Of Mathematics Name Role Phone STEPHON, DR MTZ Consulting [...] Attending Unavailable NILL, DR MTZ Consulting Unavailable DORKOBRIGITTEIE, ELIZABETH Consulting Unavailable David Montemayor Unavailable David Montemayor DO Primary Care Provider David Montemayor DO Attending Provider [phone] Medications Current Medications MedicationDrug Class(es)DatesSig (Normalized)Sig (Original)amLODIPine 10 mg oral tablet (8 sources)Dihydropyridine Calcium Channel BlockerStart: 58-46-2921brhh 1 tablet by mouth once dailyAmlodipine 10 mg tablet Active 0 .ROUTE .COMPLEX February 26, 2024 7:29pm TAKE 1 TABLET BY MOUTH DAILY Complies with drug therapyStart: 08-25-2023 End: 49-66-5791nebx 1 tablet by mouth once dailyAmlodipine 10 mg tablet Discontinued 10 MG PO Daily August 25, 2023 12:00am February 26, 2024 7:29pm take 1 tablet by mouth every twenty-four hoursamLODIPine Besylate 10 MG 1 tablet Orally Once a day for 90 days Ogucxi20 hr metoprolol succinate 50 mg extended release oral tablet (10 sources)beta-Adrenergic BlockerStart: 23-87-1401xana 1 tablet by mouth once dailyMetoprolol Succinate 50 mg tablet extended release 24 hr Active 0 .ROUTE .COMPLEX January 26, 2025 8:37am TAKE 1 TABLET BY MOUTH DAILY Complies with drug therapyStart: 01-18-2024 End: 48-59-6449iuvm 1 tablet by mouth once dailyMetoprolol Succinate 50 mg tablet extended release 24 hr Discontinued 50 MG PO Daily January 18, 2024 2:34pm January 26, 2025 8:37amStart: 08-25-2023 End: 56-03-9656fttu 1 tablet by mouth once dailyMetoprolol Succinate 25 mg tablet extended release 24 hr Discontinued 25 MG PO Daily August 25, 2023 12:00am January 18, 2024 2:35pmStart: 82-82-6143ynlu 1 tablet by mouth every twenty-four hoursMetoprolol Succinate ER 25 MG 1 tablet Orally Once a day for 90 days Sep, Activeomeprazole 20 mg delayed release oral capsule (13 sources)Proton Pump InhibitorStart: 02-27-2024 End: 00-41-6140crkk 1 capsule by mouth once dailyOmeprazole 20 mg capsule,delayed release(DR/EC) Active 20 MG PO Daily August 24, 2024 6:49amComplies with drug therapyStart: 08-25-2023 End: 41-78-9034Mryswpendo 20 mg capsule,delayed release(DR/EC) Discontinued 0 .ROUTE .COMPLEX November 28, 2023 10:00am February 27, 2024 11:04am TAKE 1 CAPSULE BY MOUTH 30 MINUTES BEFORE MORNING MEALStart: 08-25-2023 End: 77-57-1245Cetgghtlrg Active 0 .ROUTE .COMPLEX November 28, 2023 10:00am TAKE 1 CAPSULE BY MOUTH 30 MINUTES BEFORE MORNING MEALStart: 08-25-2023 End: 01-69-4101pqyy 1 capsule by mouth once dailyOmeprazole 20 mg capsule,delayed release(DR/EC) Discontinued 20 MG PO Daily August 25, 2023 12:00am August 25, 2023 4:04pmStart: 39-62-8903ootz 1 capsule by mouth once dailyOmeprazole 20 MG 1 capsule 30 minutes before morning meal Orally Once a day Oct, Activerosuvastatin calcium 10 mg oral tablet (8 sources)HMG-CoA Reductase InhibitorStart: 08-25-2023 End: 35-79-3241uakl 1 tablet by mouth once dailyRosuvastatin 10 mg tablet Active 10 MG PO Daily 90 90 February 27, 2024 11:03am Complies with drugtherapytake 1 tablet by mouth every twenty-four hoursRosuvastatin Calcium 10 MG 1 tablet Orally Once a day for 90 days Active Problems Active Problems Problem ClassificationProblemDateDocumented DateEpisodic/ChronicAnxiety disorders (14 sources)Generalized anxiety disorder; Translations: [Generalized anxiety disorder]65-79-1257MlyqrucZunchiyjw of lipid metabolism (15 sources)Hyperlipidemia, unspecified; Translations: [Mixed hyperlipidemia] Onset: 147312-89-3448PtyneclWbyodyqctg disorders (20 sources)Guillen's esophagus without dysplasia; Translations: [Guillen's esophagus]Onset: 82-95-4458HvrwyhpFohqbjs on above:EGD: 2018Esophageal disorders (7 sources)Esophageal disorders; Translations: [Gastro-esophageal reflux disease with esophagitis, without bleeding]Essential hypertension (11 sources)Essential (primary) hypertension; Translations: [Essential hypertension]Onset: 11-21-8444PzeqgsqYhzfgbgnxqy chest pain (1 source)Precordial painEpisodicOther lower respiratory disease (8 sources)Nodule of lung; Translations: [Solitary pulmonary nodule]01-01-2024 EpisodicComment on above:CT: 4.5mm RLL - 01/2024,Other lower respiratory disease (3 sources)Solitary pulmonary nodule; Translations: [Solitary pulmonary nodule] EpisodicOther screening for suspected conditions (not mental disorders or infectious disease) (4 sources)Patient encounter status; Translations: [Encounter for screening for malignant neoplasm of prostate]77-15-9861UuqhnleiArxhyckw codes; unclassified (13 sources)Obstructive sleep apnea syndrome; Translations: [Obstructive sleep apnea (adult) (pediatric)]Onset: 163250-46-3650EqtrwirQepmoxqo codes; unclassified (1 source)Obstructive sleep apnea (adult) (pediatric); Translations: [Obstructive sleep apnea (adult)(pediatric)]80-47-7189CrisnfuBajnugnj codes; unclassified (2 sources)History of colonoscopy; Translations: [Other specified postprocedural states]06-92-6596LzpcsjvfFmvhazgzg-related disorders (17 sources)Nicotine dependence, cigarettes, uncomplicated; Translations: [Tobacco user]Onset: 26-84-9898IkvjrknExfffac on above:LDCT: 4.5mm RLL nodule, no suspicious nodules - 12/2022, 01/2024Unclassified (1 source)GASTR-ESOPH RFLX DS ESPHGTS W/O BLD; Translations: [GASTR-ESOPH RFLX DS ESPHGTS W/O BLD]Onset: 88-88-7587Nysazrosyrpg (1 source)CONTACT W/AND (SUSP) EXPOS COVID-19; Translations: [CONTACT W/AND (SUSP) EXPOS COVID-19]Onset: 05-07-2021 Past or Other Problems Problem ClassificationProblemDateDocumented DateEpisodic/ChronicAbdominal hernia (1 source)Diaphragmatic hernia without obstruction or gangrene; Translations: [DIAPH HERNIA W/O OBST/GANGRENE]Onset: 40-80-7970Tvzjbson Results Test NameValueInterpretationReference RangeFacilityReminderson 05-22-2021 Reminders From: Heather Elder LPN To: N - Clinical; Sent: 05/22/2021 11:36:01 EST Show up: 04/05/2026 08:00:00 EST Subject: EGD recall Due Date/Time: 05/06/2026 08:00:00 EST Reminder/Recall Patient is due for EGD 05/06/2026 due to history of Guillen's esophagus.Normal [facility] AdministrationPathology Noteon 30-03-4728Rsahqdjvu Note [id number]#1.00CD:127NormNorwalk Memorial HospitalOperative Reporton 93-82-7667Nrxccldhl Report [id number]#1.00CD:127NoGrant HospitalLab Reportson 80-34-9836Sgc Reports [id number]#1.00CD:[address] [place], [place] [address]Covid-19 PCR (CVDTBH)on 41-53-3521REJH-CoV-2 (COVID-19) RNA COLLETTE+probe Ql (Unsp spec)Not detectedNormalNOT DETECTEDThe Western Reserve HospitalComment on above: Result Comment: This test is not yet approved or cleared by the [place] FDA. When there are no FDA-approved or cleared tests available, and other criteria are met, FDA can make tests available under an emergency access mechanism called an Emergency Use Authorization (EUA). The EUA for this test is supported by the [employer] Mechanic of Health and Human Service's (HHS's) declaration [...] of clinical signs and symptoms consistent with SARS-CoV-2.Performed By: #### CVDTB #### [facility] [address] [place] [address] Dr. Aria Cazares for Procedure/Surgeryon 22-06-4194Wwrddvk for Procedure/[id number]#1.00CD:127[facility] HospitalPatient Educationon 18-94-4132Wlfoppd EducationNoGrant HospitalProvider Letter FTon 48-71-1116Cmnabvmp Letter [facility] [place] DAVID MONTEMAYOR, [address] [place] [address] Re: HARIS BALTAZAR Date of : 1965 Thank you for your referral of Haris Baltazar who was seen on consultation on 04/14/2021 for EGD dueto history Guillen's esophagus. I have enclosed my consultation note for your review. I will be happy to follow Haris. Sincerely, Bibi Love MD General SurgeryMercy Health St. Elizabeth Youngstown HospitalAmbulatory Clinical Summaryon 13-15-7136Lwkjsxmxtw Clinical Summary {14-66-25-65-ni-94-55-14-64-21-21-27-33-e0-ce-e5}CD:912730GbhcrwJzbqxtMercy Health St. Elizabeth [facility] HospitalPhysician Referralon 86-46-3622Uugchpboq Referral [id number]#1.00CD:127[facility] Vital Signs Date TimeVital SignValuePerforming FynaappwfIqfwqsnw08-91-5615 15:03-0400Body dzoebs583.61 cmBenjamin Ball DO Work Phone: [phone] [place], [place] 7403010-01-2025 15:03-0400 Body mass index (BMI) [Ratio]27.1 kg/d9Wpmrgfme Ball DO Work Phone: [phone]10-01-2025 15:03-0400 Body duukkg67.35 kgBenjamin Ball DO Work Phone: [phone] [place], [place] 7403010-01-2025 15:03-0400 Diastolic blood ynftpqvp54 mm[Hg]David Ball DO Work Phone: [phone] [place], [place] 7403010-01-2025 15:03-0400 Heart rate87 /minBenjamin Ball DO Work Phone: [phone] [place], [place] 7403010-01-2025 15:03-0400 Respiratory rate12 /minBenjamin Ball DO Work Phone: [phone] [place], [place] 7403010-01-2025 15:03-0400 Systolic blood bauenxbf210 mm[Hg]David Ball DO Work Phone: [phone] [place], [place] 7403009-18-2024 14:25-0400 [facility] .[facility] 14:25-0400Body mass index (BMI) [Ratio]26.9 kg/s2TrculmbyaBluffton Hospital09-18-2024 14:25-0400Body holfjc94.71 kgBluffton Hospital09-18-2024 14:25-0400Diastolic blood ikxtrako25 mm[Hg][facility] 01-18-2024 14:25-0400Heart tzpw918 /[facility] 01-18-2024 14:25-0400Respiratory rate12 /[facility] 01-18-2024 14:25-0400Systolic blood dzbevvqs683 mm[Hg][facility]09-01-2023 14:00-0400Body qzoiau320.26 cmBenstanton Montemayor Other [employer] Other 09-01-2023 14:00-0400Body mass index (BMI) [Ratio] 26.81 kg/o1Mkfbccxm Ball Other [employer] Other 09-01-2023 14:00-0400Body .37 kgBenstanton Montemayor Other [employer] Other 09-01-2023 14:00-0400Diastolic blood dtdqqebe18 mm[Hg] David Ball Other [employer] Other 09-01-2023 14:00-0400Respiratory rate12 /Jerardo Montemayor Other [employer] Other 09-01-2023 14:00-0400Systolic blood gkntfzaq654 mm[Hg] David Ball Other [employer] Other Encounters Encounter DateEncounter TypeCare ProviderFacilityStart: 01-30-2025 End: 93-59-0929odwhiioxdhExpjajtd Ball DO Work Phone: [facility] Work Phone: Start: 01-30-2025 End: 89-60-1593Gbranyf encounter procedureBenjamin Ball DO-[facility] Work Phone: Start: 01-30-2025 End: 45-28-4325Qmjyubh encounter statusBenjaemperatriz Ball DOCleveland Clinic Medina Hospitaltart: 01-18-2024 End: 13-29-4173iouhefzexnMrczqyhheSelect [facility]ty [facility] Work Phone: Start: 01-18-2024 End: 70-89-9857Bavfvmmiw for general adult medical examination without abnormal findingsCleveland Clinic Medina Hospitaltart: 01-18-2024 End: 03-23-5852Tlbemou encounter procedureSloop [facility] Work Phone: Start: 21-65-5573Ctdnugg encounter statusCleveland Clinic Medina Hospitaltart: 06-08-2023 End: 40-01-6734aokhzrvfyjAocvgekj Ball Other [facility] Other Start: 56-96-1395Ibdfagswl encounterBenjamin BallFPG Ball Medical ClinicStart: 02-11-2023 End: 85-48-0707hkiunjixarFhtgomnq Ball Other [facility] Other Start: 86-73-3613Mtwcpqahw encounterBenjamin BallFPG Ball Medical ClinicStart: 01-14-2023 End: 70-33-4171oyxlwycqclTwezieyj Ball Other [employer] Other Start: 04-38-0548Lzxyiigqx encounterBenjamin BallFPG Ball Medical ClinicStart: 01-13-2023 End: 37-20-3443ztourfiztcWxwtzvvz Ball Other [employer] Other Start: 81-10-8074Pljagddsn encounterBenjamin BallFPG Ball Medical ClinicStart: 12-31-2022 End: 82-63-7508tuwpxsplkqTvhaxccm Ball Other [employer] Other Start: 93-16-5707Sbbyii outpatient visit 15 minutes David MontemayorIRIS Montemayor [facility] ClinicStart: 42-15-3909eejbvayszhBU DAVID MONTEMAYOR Facility:W8Wptam: 03-03-2022 End: 55-74-0467qolzotdmfiKL ANAM CONNORFacility:U1Yttrv: 93-13-1999Xyhwthjsp for preprocedural laboratory examinationDR BIBI SPICERRabia Georgetown Behavioral Hospitaltart: 05-06-2021 End: 69-82-1490pltmcfeaffBW BIBI LOVEFacility:Z7Blyrd: 04-30-2021 End: 07-57-8312umoafqdjrsCQ BIBI LOVEFacility:W3Gnmvf: 04-30-2021 End: 93-40-1239Onkuoefkk for preprocedural laboratory examinationDR BIBI LOVE Facility:H1 Plan of Treatment DateCare ActivityDetailAuthorComprehensive metabolic 1999 panel - Serum or [facility] HospitalComprehensive metabolic 2000 panel - Serum or [facility] HospitalCT Chest WO contrastNorth [facility] Medical Center Payers DatePayer CategoryPayerPolicy [id number] .[id number] .[id number] Cross Blue Shield [id number] .[id number] .[id number] Social History DateTypeDetailFacilitySex Assigned At [facility] - Private Location App Other Start: 64-24-4805Mik Assigned At [facility] HospitalTobacc smoking status NHISUnknown if ever smoked [facility] Work Phone: SexMale (finding)[facility] Clinical Notes 04-15-2021 to 06-08-2023 Note Date & YemnVxdeOayrpcli45-75-5092 Evaluation note* Encounter Date Diagnosis Assessment Notes Treatment Notes Treatment Clinical Notes Jun, Primary hypertension (ICD-10 - I 10) [facility] Other 10-13-2023 Evaluation note* Encounter Date Diagnosis Assessment Notes Treatment Notes Treatment Clinical Notes Jan, Primary hypertension (ICD-10 - I 10) [facility] Other 09-14-2023 Evaluation note* Encounter Date Diagnosis Assessment Notes Treatment Notes Treatment Clinical Notes Dec, Nicotine dependence, cigarettes, uncomplicated (ICD-10 - F17.210) 14 Dec,ulmonary nodule (ICD-10 - R91.1)CT: stable 4.5mm nodule - 12/2022 [facility] Other 09-01-2023 Evaluation note* Encounter Date Diagnosis Assessment Notes Treatment Notes Treatment Clinical Notes Dec, Pulmonary nodule (ICD-10 - R91.1 ) Dec,recordial pain (ICD-10 - R07.2) Dec,astro-esophageal reflux disease with esophagitis, without bleeding (ICD-10 - K21.00) Dec,rimary hypertension (ICD-10 - I10) Dec,Nicotine dependence, cigarettes, uncomplicated (ICD-10 - F17.210) [facility] Other 01-05-2022 NoteOPERATIVE NOTE OPERATION DATE: 05-06-21 [...] Recovery Room in good condition. cc:Dr. Montemayor. [facility] Signed and Approved by: DR BIBI LOVE . 05/06/2021 10:37:00[facility]12-15-2021 NoteChief Complaint consultation for heartburn HPI [...] and Brother. Primary malignant neoplasm of lung: Father.[facility] Health AdministrationComment on above:Result Comment: Electronically Signed By: STEPHON ANDRADE, iBbi Flores\Date and Time Signed: 04/15/21 11:44 ESTEvaluation noteNo IDENT[employer] GROUPNoSoftoCoupon Other Evaluation note* Diagnosis Onset Date Resolution Status Guillen's esophagus acuteGAD (generalized anxiety disorder)acuteGERD (gastroesophageal reflux disease)acuteHypercholesterolemiaacuteNicotine addictionacuteOSA (obstructive sleep apnea)acutePulmonary noduleacuteScreening PSA (prostate specific antigen) acuteWellness examinationacute [facility] Work Phone: Evaluation note* Diagnosis Onset Date Resolution Status Admit Date ALLY (generalized anxiety disorder) acuteOctober 2024 2:52pmGERD (gastroesophageal reflux disease)acuteOctober 2024 2:52pmHypercholesterolemiaacuteOctober 2024 2:52pmHypertension acuteOctober 2024 2:52pmNicotine addictionacuteOctober 2024 2:52pmOSA (obstructive sleep apnea)acuteOctober 2024 2:52pmPulmonary noduleacute January 30, 2025 2:52pmScreening PSA (prostate specific antigen)acuteOctober 2024 2:52pmWellness examinationacuteOctober 2024 2:52pm [facility] Work Phone: History general Narrative - Reported* Type Description Date Medical History Hyperlipidemia, mixed Medical HistoryGAD (generalized anxiety disorder)Medical HistoryCigarette nicotine dependence without complicationMedical HistoryObstructive sleep apnea Medical HistoryBarrett's esophagus without dysplasiaMedical History Gastroesophageal reflux disease with esophagitis without hemorrhageSurgical NkgbfwbNPUKMTZGJNS32/2018Surgical WiypxnoFPW45/2018Hospitalization Historysee surgical history [facility] Other Reason for referral (narrative)No reason for referral information availableMercy Health Fairfield Hospital Work Phone: Summary Purpose Family History Relationship Condition Age at Onset Recorded Date/T ramon mother Diabetes mellitus Unknown Heart diseaseUnknown Advance Directives Advance Directive Response Recorded Date/ [...] section and content) DATE CREATED AUTHOR 05/23/2021 [facility] DATE CREATED AUTHOR AUTHOR'S ORGANIZ ATION 04/24/2022 [facility] REASON FOR VISIT (unrecogniz ed section and content) chest pain, not cardiac rela tedNo InformationCT resultsRefillRefills Care Teams (unrecognized sec tion and content) Team Status: Active Member Role Status Dates David Montemayor DO Primary Care Provider Active Team Status: Inactive Member Role Status Dates David Montemayor DO Primary Care Provide r, Attending Provider Active Start: January 18, 2024 End: January 18, 2024 Team Status: Inactive Member Role Status Dates David Montemayor DO Primary Care Provider Active Start: January 30, 2025 End: January 30enjaemperatriz Montemayor DOAttending ProviderActiveStart: January 30, 2025 End: January 30, 2025 [...] BE BASED ON THE PRIMARY CLINICAL RECORDS. [employer] provides no warranty or guarantee of the accuracy or completeness of information in this document.
--- NOTE | 2025-02-28 15:00 | CT_ITS ---
The [address] [address] Patient Name: RASHAWN BALTAZAR MRN: [id number] date: 1965 Sex: M Assigned Patient Location: CT Current Patient Location: Accession/Order Number: [id number] Exam Date: 02/28/2025 14:50 Report Date: 03/01/2025 10:28 At the request of: FABIO MONTEMAYOR DO Procedure: CT lung screening low-dose LOW-DOSE SCREENING CHEST CT WITHOUT CONTRAST COMPARISON: 01/25/2024 and 01/13/2023 CLINICAL DATA: Former smoker with 40 to pack year history of tobacco use. Spiral axial unenhanced low-dose images were obtained through the chest. Images were reviewed using both narrow and wide window settings. This CT exam was performed using one or more following dose reduction techniques: Automated exposure control, adjustment of the mA and/or kV according to patient size, or use of iterative reconstruction technique. The heart is normal size. No pericardial effusion is seen. No aortic aneurysm is identified. Minimal plaque is present at the aortic arch. There are a few small nonpathologic mediastinal lymph nodes. The bony structures are intact. There is minimal apical and right middle lobe scarring. No developing consolidation, pleural effusion or pneumothorax is seen. A noncalcified nodule is again noted at the superior segment of the right lower lobe. This measures 5.6 in size, previous 5 mm. A soft tissue component is also better visualized. No new nodularity is identified. The upper imaged abdomen shows no contributory findings. CT/CT lung screening low-dose IMPRESSION: RIGHT LOWER LOBE NODULE, MINIMALLY LARGER. NO ACUTE FINDINGS. Lung RADS category 2-benign Continued Twelve-month low-dose CT follow-up is suggested. Impression dictated by: Amaris Conti M.D. 03/01/2025 10:28 AM Dictation Location: [place] [address] Electronically authenticated by: [id number] Y Date: 03/01/2025 10:28
== END 2025-02-28 14:24 | disposition home or self-care (01) ==
LOC: CT 14:23
PROVIDERS: PCP Internal Medicine; Visit Provider Internal Medicine
DX: F17.211 Nicotine dependence, cigarettes, in remission (principal)
CPT/HCPCS: 71271